=== PATIENT | male | born 1970 | race Caucasian/White ===

== ENCOUNTER 2018-12-24 07:22 | Emergency (ER) | payer MEDICAID ==
[~2018-12-24] VITALS: Ht 180.3 cm; Wt 96.0 kg
[2018-12-24 07:31] VITALS: BP 132/76
== END 2018-12-24 09:06 | disposition home or self-care (01) ==
LOC: ER 07:24
DX: S70.362A Insect bite (nonvenomous), left thigh, initial encounter (principal); S70.361A Insect bite (nonvenomous), right thigh, initial encounter; G89.29 Other chronic pain; F17.200 Nicotine dependence, unspecified, uncomplicated; W57.XXXA Bitten or stung by nonvenomous insect and other nonvenomous arthropods, initial encounter; Y93.89 Activity, other specified; Y92.89 Other specified places as the place of occurrence of the external cause; Y99.8 Other external cause status
CPT/HCPCS: 99281

== ENCOUNTER 2019-01-12 22:06 | Emergency (ER) | payer MEDICAID ==
[~2019-01-12] VITALS: Ht 180.3 cm; Wt 97.3 kg
[2019-01-13] MEDS ORDERED: PRED20TA PO (00:45)
[2019-01-13] MEDS ORDERED: DIPH25CA83 PO (00:45)
[2019-01-13] MEDS ORDERED: FAMO40TA73 PO (00:45)
[2019-01-13 01:01] VITALS: BP 122/71
== END 2019-01-13 01:04 | disposition home or self-care (01) ==
LOC: ER 22:07
DX: L50.9 Urticaria, unspecified (principal); G89.29 Other chronic pain; Z79.899 Other long term (current) drug therapy
CPT/HCPCS: 99283

== ENCOUNTER 2019-03-03 11:58 | Emergency (ER) | payer MEDICAID ==
[~2019-03-03] VITALS: Ht 170.2 cm; Wt 96.0 kg
[~2019-03-03 11:58] MED LIST: DIPH25CA83 PO; FAMO40TA73 PO
[2019-03-03 12:01] VITALS: BP 126/83
[2019-03-03] MEDS ORDERED: bacitracin 15gm ointment TP ONE (12:20)
--- NOTE | 2019-03-03 12:33 | NUR ---
Pt presents to ED stating "I have a blister on my toe and I just need some bandaids and some triple antibiotic ointment because I'm homeless and I have no money".
== END 2019-03-03 12:35 | disposition home or self-care (01) ==
LOC: ER 11:59
DX: S90.422A Blister (nonthermal), left great toe, initial encounter (principal); S90.821A Blister (nonthermal), right foot, initial encounter; G89.29 Other chronic pain; Z79.899 Other long term (current) drug therapy; X58.XXXA Exposure to other specified factors, initial encounter; Y93.89 Activity, other specified; Y92.89 Other specified places as the place of occurrence of the external cause; Y99.8 Other external cause status
CPT/HCPCS: 99281; 99282

== ENCOUNTER 2019-05-09 12:17 | Emergency (ER) | payer MEDICAID ==
[~2019-05-09] VITALS: Ht 180.3 cm; Wt 97.5 kg
[2019-05-09 12:51] LABS: BASOPHILS # (AUTO) 0.1 X10'3 (0-0.2); BASOPHILS % (AUTO) 0.6 % (0-1); EOSINOPHILS # (AUTO) 0.5 X10'3 (0-0.9); EOSINOPHILS % (AUTO) 5.2 % (0-6); HEMATOCRIT 48.4 % (42.0-52.0); HEMOGLOBIN 16.7 g/dl (14.0-17.9); LYMPHOCYTES # (AUTO) 1.7 X10'3 (1.1-4.8); LYMPHOCYTES % (AUTO) 17.8 % (21-51); MEAN CORPUSCULAR HEMOGLOBIN 31.6 PG (27.0-31.0); MEAN CORPUSCULAR HGB CONC 34.4 g/dL (33.0-36.5); MEAN CORPUSCULAR VOLUME 91.8 FL (78-98); MEAN PLATELET VOLUME 9.7 FL (7.4-10.4); MONOCYTES # (AUTO) 1.2 X10'3 (0-0.9); MONOCYTES % (AUTO) 12.1 % (2-12); NEUTROPHILS # (AUTO) 6.2 X10'3 (1.8-7.7); NEUTROPHILS % (AUTO) 64.3 % (42-75); PLATELET COUNT 286 X10'3 (140-440); RED BLOOD COUNT 5.27 X10'6 (4.70-6.10); RED CELL DISTRIBUTION WIDTH 14.3 % (11.5-14.5); WHITE BLOOD COUNT 9.6 X10'3 (4.5-11.0)
[2019-05-09 13:05] LABS: PARTIAL THROMBOPLASTIN TIME 30 SECONDS (22-32)
[2019-05-09 14:00] LABS: ALANINE AMINOTRANSFERASE 32 U/L (12-78); ALKALINE PHOSPHATASE 79 IU/L (46-116); ANION GAP 9 (8-16); ASPARTATE AMINO TRANSFERASE 21 U/L (10-37); BILIRUBIN,TOTAL 0.3 MG/DL (0.1-1.0); BLOOD UREA NITROGEN 13 MG/DL (7-18); BUN/CREATININE RATIO 13.3 (5.4-32.0); CHLORIDE 105 MMOL/L (99-107); CREATININE 0.98 MG/DL (0.60-1.10); GLUCOSE 113 MG/DL (70-104); POTASSIUM 4.2 MMOL/L (3.5-5.1); SODIUM 141 MMOL/L (135-145); TOTAL CARBON DIOXIDE 27.4 MMOL/L (24-32); TOTAL PROTEIN 8.1 G/DL (6.4-8.2); eGFR 81 ML/MIN
[2019-05-09] MEDS ORDERED: BENZ-16 PO (14:28)
[2019-05-09 14:40] VITALS: BP 126/78
== END 2019-05-09 14:43 | disposition home or self-care (01) ==
LOC: ER 12:18
DX: J06.9 Acute upper respiratory infection, unspecified (principal); R05 Cough; G89.29 Other chronic pain; F17.200 Nicotine dependence, unspecified, uncomplicated; Z91.010 Allergy to peanuts; Z79.899 Other long term (current) drug therapy
CPT/HCPCS: 36415; 71045; 80053; 84484; 85025; 85610; 85730; 93005; 99284

== ENCOUNTER 2020-04-08 12:59 | Emergency (ER) | payer MEDICAID ==
[~2020-04-08] VITALS: Ht 180.3 cm; Wt 110.0 kg
[2020-04-08] MEDS ORDERED: ketorolac tromethamine 15mg/ml inj. IM ONE (15:25)
[2020-04-08] MEDS ORDERED: orphenadrine citrate 60mg/2ml inj. IM ONE (15:25)
[2020-04-08] MEDS ORDERED: ORPH100T2 PO (15:26)
[2020-04-08] MEDS ORDERED: TRAM50TA2 PO ×2 (15:43→15:45)
[2020-04-08 15:53] VITALS: BP 128/80
== END 2020-04-08 15:58 | disposition home or self-care (01) ==
LOC: ER 13:00
DX: M54.42 Lumbago with sciatica, left side (principal); G89.29 Other chronic pain; Z91.010 Allergy to peanuts; Z79.899 Other long term (current) drug therapy
CPT/HCPCS: 96372; 99283; J2360

== ENCOUNTER 2020-06-07 19:08 | Emergency (ER) | payer MEDICAID ==
[~2020-06-07] VITALS: Ht 180.3 cm; Wt 100.0 kg
[~2020-06-07 19:08] MED LIST changes: +ORPH100T2 PO; +TRAM50TA2 PO
[2020-06-07] MEDS ORDERED: baclofen 10mg tablet PO STA (20:17)
[2020-06-07] MEDS ORDERED: ibuprofen 200mg tablet PO ONE (20:20)
[2020-06-07] MEDS ORDERED: BACL-11 PO (20:26)
[2020-06-07 20:39] VITALS: BP 138/86
== END 2020-06-07 20:41 | disposition home or self-care (01) ==
LOC: ER 19:09
DX: G89.29 Other chronic pain (principal); M25.552 Pain in left hip; Z91.010 Allergy to peanuts; Z79.899 Other long term (current) drug therapy
CPT/HCPCS: 99283

== ENCOUNTER 2021-08-23 09:46 | Emergency (ER) | payer MEDICAID ==
[~2021-08-23] VITALS: Ht 180.3 cm; Wt 102.3 kg
[~2021-08-23 09:46] MED LIST changes: +BACL-11 PO; +LIDOcaine 1% W/epiNEPHrine 1:100,000 20ml vial ONE
[2021-08-23 10:08] VITALS: BP 142/107
[2021-08-23] MEDS ORDERED: TETanus/Pertussis (Acell)/Diphther VAC/PF (Tdap-Adult) 0.5ml syringe IMVAC ONE (10:15)
[2021-08-23] MEDS ORDERED: HYDR-3965 PO (11:35)
[2021-08-23] MEDS ORDERED: CEPH250T PO (11:35)
== END 2021-08-23 12:27 | disposition home or self-care (01) ==
LOC: ER 09:46
DX: S61.215A Laceration without foreign body of left ring finger without damage to nail, initial encounter (principal); G89.29 Other chronic pain; Z91.010 Allergy to peanuts; Z79.899 Other long term (current) drug therapy; X58.XXXA Exposure to other specified factors, initial encounter; Y93.89 Activity, other specified; Y92.89 Other specified places as the place of occurrence of the external cause; Y99.8 Other external cause status
CPT/HCPCS: 12001; 73130; 90715; 99283; J3490

== ENCOUNTER 2021-09-07 18:12 | Emergency (ER) | payer MEDICAID ==
[~2021-09-07 18:12] MED LIST changes: +HYDR-3965 PO; -LIDOcaine 1% W/epiNEPHrine 1:100,000 20ml vial ONE
--- NOTE | 2021-09-07 19:14 | NUR ---
PATIENT WAS NIL X 3 TIMES. HE THEN CAME INTO ED TO USE RESTROOM. UPON EXITING RESTROOM HE ADVISED THE ER INDIGO MIXER THAT HE WAS LEAVING, HE DIDN'T WANT TO BE SEEN.
== END 2021-09-07 19:19 | disposition left against medical advice (07) ==
LOC: ER 18:13
DX: Z48.02 Encounter for removal of sutures (principal); Z53.21 Procedure and treatment not carried out due to patient leaving prior to being seen by health care provider

== ENCOUNTER 2021-11-26 15:40 | Emergency (ER) | payer MEDICAID ==
[~2021-11-26] VITALS: Ht 180.3 cm; Wt 102.3 kg
[~2021-11-26 15:40] MED LIST changes: -HYDR-3965 PO
[2021-11-26] MEDS ORDERED: HYDROcodone/acetaminophen 10/325mg tab PO STA (16:22)
[2021-11-26] MEDS ORDERED: ketorolac trometh inj. 60 MG/2 ML VIAL IM ONE (16:35)
[2021-11-26] MEDS ORDERED: HYDROcodone/acetaminophen 10/325mg tab PO ONE (17:10)
[2021-11-26] MEDS ORDERED: ketorolac trometh. 30mg/ml inj. IM ONE (17:10)
--- NOTE | 2021-11-26 17:20 | NUR ---
HOME THERAPY CLINICIAN AT BEDSIDE AT THIS TIME.
[2021-11-26] MEDS ORDERED: HYDR-3972 PO (18:43)
[2021-11-26 19:01] VITALS: BP 140/78
== END 2021-11-26 19:08 | disposition home or self-care (01) ==
LOC: ER 15:40
DX: S40.012A Contusion of left shoulder, initial encounter (principal); S00.01XA Abrasion of scalp, initial encounter; M25.561 Pain in right knee; R22.41 Localized swelling, mass and lump, right lower limb; G89.29 Other chronic pain; Z91.010 Allergy to peanuts; Z79.899 Other long term (current) drug therapy; V49.9XXA Car occupant (driver) (passenger) injured in unspecified traffic accident, initial encounter; Y93.89 Activity, other specified; Y92.89 Other specified places as the place of occurrence of the external cause; Y99.8 Other external cause status
CPT/HCPCS: 73030; 73564; 96372; 99284; J1885